=== PATIENT | female | born 1955 | race Asian ===

== ENCOUNTER 2016-07-13 19:12 | Emergency (ER) | payer SELFPAY ==
[~2016-07-13] VITALS: Ht 160 cm; Wt 52.3 kg
[2016-07-13] MEDS ORDERED: LOSA50TA37 PO (20:22)
[2016-07-13] MEDS ORDERED: ASPI81 PO (20:22)
[2016-07-13] MEDS ORDERED: METF500T4 PO (20:24)
[2016-07-13] MEDS ORDERED: ATOR20TA86 PO (20:24)
[2016-07-13 21:05] LABS: BASOPHILS % (AUTO) 0.3 % (0.0-2.0); EOSINOPHILS % (AUTO) 2.8 % (1.0-6.0); HEMATOCRIT 41.6 % (36-46); HEMOGLOBIN 13.4 g/dL (12.0-16.0); LYMPHOCYTES # (AUTO) 2.7 K/uL (1.0-4.8); LYMPHOCYTES % (AUTO) 26.4 % (22.0-44.0); MEAN CORPUSCULAR HEMOGLOBIN 26.1 pg (26.0-34.0); MEAN CORPUSCULAR HGB CONC 32.2 G/dL (31.0-37.0); MEAN CORPUSCULAR VOLUME 81 fL (80-100); NEUTROPHILS # (AUTO) 6.3 K/uL (1.8-7.7); NEUTROPHILS % (AUTO) 60.5 % (40.0-70.0); PLATELET COUNT (AUTO) 286 K/uL (150-450); RED BLOOD CELL COUNT(AUTO) 5.12 MIL/uL (4.00-5.20); RED CELL DISTRIBUTION WIDTH 14.6 % (11.5-14.5); WHITE BLOOD COUNT (AUTO) 10.4 K/uL (4.5-11.0)
[2016-07-13 21:09] LABS: ANION GAP 10 mmol/L (8-16); CALCIUM, TOTAL 9.3 mg/dL (8.8-10.5); CARBON DIOXIDE 31 mmol/L (22-29); CHLORIDE 101 mmol/L (98-107); GLOMERULAR FILTR. RATE CALC 56 mL/min (>60); POTASSIUM 3.5 mmol/L (3.5-5.1); SODIUM SERUM 142 mmol/L (136-145); UREA NITROGEN, BLOOD 13 mg/dL (7-18)
[2016-07-13 21:18] LABS: INR 0.9 (0.9-1.1); PROTHROMBIN TIME 9.8 SEC (9.4-11.6)
[2016-07-13 21:30] LABS: B-TYPE NATRIURETIC PEPTIDE 55 pg/mL (0-100)
[2016-07-13] MEDS ORDERED: CloNIDine HCL 0.2 MG TABLET PO ONE (21:30)
[2016-07-13 21:33] LABS: ALANINE AMINOTRANSFERASE 23 U/L (12-78); ALBUMIN 4.3 g/dL (3.4-5.0); ASPARTATE AMINOTRANSFERASE 19 U/L (15-37); BILIRUBIN,TOTAL 0.3 mg/dL (0.1-1.0); CREATINE KINASE MB 0.7 ng/mL (0-5); CREATINE KINASE, TOTAL 110 U/L (26-192); TOTAL PROTEIN, SERUM 8.9 g/dL (6.4-8.2)
[2016-07-13 22:29] VITALS: BP 164/85
== END 2016-07-13 22:40 | disposition home or self-care (01) ==
LOC: EMS 19:15
DX: I10 Essential (primary) hypertension (principal); E11.9 Type 2 diabetes mellitus without complications
CPT/HCPCS: 93005; 99285

== ENCOUNTER 2017-02-03 05:04 | Inpatient (IN) | payer MEDICAID ==
[~2017-02-03] VITALS: Ht 160 cm; Wt 49.6 kg
[~2017-02-03 05:04] MED LIST: ASPI81 PO; ATOR20TA86 PO; LOSA50TA37 PO; METF500T4 PO
[2017-02-03 05:32] LABS: BASOPHILS % (AUTO) 0.1 % (0.0-2.0); EOSINOPHILS % (AUTO) 0.1 % (1.0-6.0); HEMATOCRIT 34.3 % (36-46); HEMOGLOBIN 11.3 g/dL (12.0-16.0); LYMPHOCYTES # (AUTO) 0.5 K/uL (1.0-4.8); LYMPHOCYTES % (AUTO) 3.8 % (22.0-44.0); MEAN CORPUSCULAR HEMOGLOBIN 26.7 pg (26.0-34.0); MEAN CORPUSCULAR HGB CONC 32.9 G/dL (31.0-37.0); MEAN CORPUSCULAR VOLUME 81 fL (80-100); MONOCYTES # (AUTO) 0.1 K/uL (0.1-1.0); MONOCYTES % (AUTO) 0.9 % (2.0-9.0); NEUTROPHILS # (AUTO) 12.4 K/uL (1.8-7.7); NEUTROPHILS % (AUTO) 95.1 % (40.0-70.0); PLATELET COUNT (AUTO) 424 K/uL (150-450); RED BLOOD CELL COUNT(AUTO) 4.23 MIL/uL (4.00-5.20); RED CELL DISTRIBUTION WIDTH 14.2 % (11.5-14.5)
[2017-02-03 05:34] LABS: GLUCOSE,POINT OF CARE 151 MG/DL (70-110)
[2017-02-03 05:45] LABS: GLUCOSE, URINE (UA) 100 mg/dL (NEGATIVE); KETONES,URINE NEGATIVE (NEGATIVE); LEUKOCYTE ESTERASE ,URINE TRACE (NEGATIVE); OCCULT BLOOD,URINE LARGE (NEGATIVE); PROTEIN,URINE TRACE (NEGATIVE)
[2017-02-03 05:49] LABS: ADD UA MICROSCOPIC YES; APPEARANCE,URINE HAZY (CLEAR)
[2017-02-03 05:53] LABS: CALCIUM, TOTAL 8.9 mg/dL (8.8-10.5); CREATININE 1.19 mg/dL (0.60-1.30); POTASSIUM 3.3 mmol/L (3.5-5.1)
[2017-02-03 06:00] LABS: ALBUMIN 3.8 g/dL (3.4-5.0); BILIRUBIN,TOTAL 0.4 mg/dL (0.1-1.0); TOTAL PROTEIN, SERUM 8.1 g/dL (6.4-8.2)
[2017-02-03] MEDS ORDERED: ENALAPRILAT DIHYDRATE 1.25 MG/ML 2 ML VIAL IVP ONE (06:15)
[2017-02-03] MEDS ORDERED: CeFAZolin 1 GM/DEXTROSE 50 ML IV ONE (06:15)
[2017-02-03] MEDS ORDERED: IOVERSOL 320 MG/ML 100 ML VIAL ONE (06:19)
[2017-02-03] MEDS ORDERED: SODIUM CHLORIDE 0.9% 100 ML ONE (06:19)
[2017-02-03 09:07] LABS: PROTHROMBIN TIME 10.5 SEC (9.4-11.6)
[2017-02-03 10:10] VITALS: BP 170/73
[2017-02-03] MEDS ORDERED: OxyCODONE HCL/ACETAMINOPHEN 5-325 MG TABLET PO PRN (10:45)
[2017-02-03] MEDS ORDERED: MORPHINE SULFATE 2 MG/ML SYRINGE IVP PRN (10:45)
[2017-02-03] MEDS ORDERED: MAGNESIUM HYDROXIDE SUSPENSION 30 ML UDCUP PO PRN (10:45)
[2017-02-03] MEDS ORDERED: CloNIDine HCL 0.1 MG TABLET PO PRN (10:45)
[2017-02-03] MEDS ORDERED: DEXTROSE 50%-WATER 25 GM/50 ML SYRINGE IVP PRN (10:45)
[2017-02-03] MEDS ORDERED: ONDANSETRON HCL 4 MG/2 ML VIAL IVP PRN (10:45)
[2017-02-03] MEDS ORDERED: INSULIN ASPART 100 UNITS/ML SQ PRN (10:45)
[2017-02-03] MEDS: PANTOPRAZOLE SODIUM 40 MG DR TABLET PO SCH (11:31)
[2017-02-03] MEDS: AmLODIPine BESYLATE 10 MG TABLET PO SCH (11:31)
[2017-02-03 11:57] LABS: GLUCOSE,POINT OF CARE 125 MG/DL (70-110)
[2017-02-03] MEDS ORDERED: RINGERS SOLUTION,LACTATED 1,000 ML IV ONE (12:21)
[2017-02-03] MEDS ORDERED: SODIUM CL IRRIG SOLN BAG 3,000 ML IRRIG ONE (13:09)
[2017-02-03] MEDS ORDERED: IOHEXOL 240 MG/ML 20 ML VIAL ONE ×2 (13:09)
[2017-02-03] MEDS ORDERED: FentaNYL CITRATE-PF 100 MCG/2 ML VIAL IVP PRN (13:30)
[2017-02-03] MEDS ORDERED: HYDROmorphone 2 MG/ML SYRINGE IVP PRN (13:30)
[2017-02-03] MEDS ORDERED: MEPERIDINE-PF 25 MG/ML SYRINGE IVP PRN (13:30)
[2017-02-03 13:41] VITALS: BP 148/77
[2017-02-03 16:00] VITALS: BP 138/70
[2017-02-03] MEDS: HEPARIN SODIUM,PORCINE 5,000 UNITS/ML VIAL SQ SCH (16:45)
[2017-02-03] MEDS ORDERED: SODIUM CHLORIDE 0.9% 500 ML IV ONE (16:58)
[2017-02-03] MEDS: CeFAZolin 1 GM/DEXTROSE 50 ML IV SCH (16:59)
[2017-02-03 19:19] VITALS: BP 147/70
[2017-02-03] MEDS: DOCUSATE SODIUM 100 MG CAPSULE PO SCH (20:30)
[2017-02-03] MEDS: OXYGEN THERAPY IH SCH (20:31)
[2017-02-03 20:59] LABS: GLUCOSE,POINT OF CARE 124 MG/DL (70-110)
[2017-02-03 20:59] LABS: GLUCOSE,POINT OF CARE 120 MG/DL (70-110)
[2017-02-03] MEDS ORDERED: ONDANSETRON HCL 4 MG/2 ML VIAL IVP ONE (21:39)
[2017-02-03] MEDS ORDERED: KETOROLAC TROMETHAMINE 60 MG/2 ML VIAL IM ONE (21:39)
[2017-02-03] MEDS ORDERED: LIDOCAINE HCL/PF 2% 5 ML VIAL IM ONE (21:39)
[2017-02-03] MEDS ORDERED: PROPOFOL 1% 20 ML VIAL IVP ONE (21:39)
[2017-02-03 23:53] VITALS: BP 128/60
[2017-02-04] VITALS (7 sets, daily range): BP systolic 90–146; BP diastolic 54–78
[2017-02-04] MEDS: HEPARIN SODIUM,PORCINE 5,000 UNITS/ML VIAL SQ SCH ×4 (00:07→23:14)
[2017-02-04] MEDS: ACETAMINOPHEN 325 MG TABLET PO PRN ×2 (00:08→23:13)
[2017-02-04] MEDS: CeFAZolin 1 GM/DEXTROSE 50 ML IV SCH ×2 (06:14→17:26)
[2017-02-04 06:23] LABS: GLUCOSE,POINT OF CARE 110 MG/DL (70-110)
[2017-02-04] MEDS: DOCUSATE SODIUM 100 MG CAPSULE PO SCH ×2 (08:27→20:16)
[2017-02-04] MEDS: PANTOPRAZOLE SODIUM 40 MG DR TABLET PO SCH (08:27)
[2017-02-04] MEDS: AmLODIPine BESYLATE 10 MG TABLET PO SCH (08:27)
[2017-02-04 12:23] LABS: GLUCOSE,POINT OF CARE 78 MG/DL (70-110)
[2017-02-04] MEDS ORDERED: FentaNYL CITRATE-PF 100 MCG/2 ML VIAL IVP ONE (22:53)
[2017-02-04] MEDS ORDERED: MIDAZOLAM HCL 2 MG/2 ML VIAL IVP ONE (22:53)
[2017-02-05 04:26] VITALS: BP 141/80
[2017-02-05] MEDS: CeFAZolin 1 GM/DEXTROSE 50 ML IV SCH (05:30)
[2017-02-05 06:07] LABS: GLUCOSE,POINT OF CARE 102 MG/DL (70-110)
[2017-02-05 06:30] LABS: BASOPHILS # (AUTO) 0.02 K/uL (0.00-0.20); BASOPHILS % (AUTO) 0.3 % (0.0-2.0); EOSINOPHILS # (AUTO) 0.13 K/uL (0.00-0.70); EOSINOPHILS % (AUTO) 1.71 % (1.0-6.0); HEMATOCRIT 31.2 % (36-46); HEMOGLOBIN 10.4 g/dL (12.0-16.0); LYMPHOCYTES # (AUTO) 1.7 K/uL (1.0-4.8); LYMPHOCYTES % (AUTO) 22.8 % (22.0-44.0); MEAN CORPUSCULAR HEMOGLOBIN 26.7 pg (26.0-34.0); MEAN CORPUSCULAR HGB CONC 33.2 G/dL (31.0-37.0); MEAN CORPUSCULAR VOLUME 81 fL (80-100); MONOCYTES % (AUTO) 13.6 % (2.0-9.0); NEUTROPHILS # (AUTO) 4.5 K/uL (1.8-7.7); NEUTROPHILS % (AUTO) 61.6 % (40.0-70.0); PLATELET COUNT (AUTO) 281 K/uL (150-450); RED BLOOD CELL COUNT(AUTO) 3.88 MIL/uL (4.00-5.20); RED CELL DISTRIBUTION WIDTH 14.2 % (11.5-14.5); WHITE BLOOD COUNT (AUTO) 7.3 K/uL (4.5-11.0)
[2017-02-05 06:50] LABS: CALCIUM, TOTAL 8.6 mg/dL (8.8-10.5); CREATININE 1.06 mg/dL (0.60-1.30); POTASSIUM 3.6 mmol/L (3.5-5.1)
[2017-02-05 08:00] VITALS: BP 144/74
[2017-02-05] MEDS: OXYGEN THERAPY IH SCH (08:00)
[2017-02-05] MEDS: HEPARIN SODIUM,PORCINE 5,000 UNITS/ML VIAL SQ SCH (08:55)
[2017-02-05] MEDS: DOCUSATE SODIUM 100 MG CAPSULE PO SCH (08:55)
[2017-02-05] MEDS: AmLODIPine BESYLATE 10 MG TABLET PO SCH (08:55)
[2017-02-05] MEDS: PANTOPRAZOLE SODIUM 40 MG DR TABLET PO SCH (08:55)
[2017-02-05] MEDS ORDERED: LEVO500T89 PO (10:26)
[2017-02-05 12:02] LABS: GLUCOSE,POINT OF CARE 76 MG/DL (70-110)
== END 2017-02-05 12:15 | disposition home or self-care (01) | DRG 465 ==
LOC: EMS 05:05 → 4E 09:44
PROVIDERS: ADMIT Internal Medicine; ATTEND Internal Medicine
PROC: BT1D1ZZ Fluoroscopy of Right Kidney, Ureter and Bladder using Low Osmolar Contrast (ICD-10-PCS; 2017-02-03)
PROC: 0T768DZ Dilation of Right Ureter with Intraluminal Device, Via Natural or Artificial Opening Endoscopic (ICD-10-PCS; principal; 2017-02-03 14:06)
DX: N13.2 Hydronephrosis with renal and ureteral calculous obstruction (principal); Q61.3 Polycystic kidney, unspecified; N39.0 Urinary tract infection, site not specified; I10 Essential (primary) hypertension; E11.9 Type 2 diabetes mellitus without complications; B96.20 Unspecified Escherichia coli [E. coli] as the cause of diseases classified elsewhere; F17.200 Nicotine dependence, unspecified, uncomplicated; M47.814 Spondylosis without myelopathy or radiculopathy, thoracic region; Z83.3 Family history of diabetes mellitus; Z87.442 Personal history of urinary calculi
CPT/HCPCS: 74177; 82962; 87086; 93005; 96365; 96375; 99285; J0690; J1644; J1885; J2250; J2270; J2405; J2704; J3010; J3490; J7040; J7050; J7120; Q9966